=== PATIENT | female | born 1975 | race Hispanic/Latino ===

== ENCOUNTER 2022-09-17 22:04 | Emergency (ER) | payer MEDICAID ==
[~2022-09-17] VITALS: Ht 144.8 cm; Wt 68.0 kg
[2022-09-17] MEDS ORDERED: IPRATROPIUM 0.5 MG/2.5 ML INH IH ONE (23:30)
[2022-09-17] MEDS ORDERED: ALBUTEROL 0.042% 1.25MG/3ML IH ONE ×2 (23:30)
[2022-09-18] MEDS ORDERED: ALBUTEROL 0.042% 1.25MG/3ML IH ONE (02:00)
[2022-09-18] MEDS ORDERED: ALBU2.5V2 IH (03:17)
[2022-09-18] MEDS ORDERED: PRED20TA3 PO (03:17)
[2022-09-18 03:20] VITALS: BP 105/65
== END 2022-09-18 03:32 | disposition home or self-care (01) ==
LOC: EDH 22:04
DX: J45.901 Unspecified asthma with (acute) exacerbation (principal); E11.9 Type 2 diabetes mellitus without complications; Z90.710 Acquired absence of both cervix and uterus; Z88.0 Allergy status to penicillin
CPT/HCPCS: 94640